=== PATIENT | female | born 1985 | race Caucasian/White ===

== ENCOUNTER 2017-08-01 17:35 | Emergency (ER) | payer SELFPAY ==
[~2017-08-01] VITALS: Ht 157.5 cm; Wt 65.5 kg
[~2017-08-01 17:35] MED LIST: HYDR-3498 PO
[2017-08-01 17:37] VITALS: Ht 157.5 cm; Wt 65.5 kg
--- NOTE | 2017-08-01 20:28 | ERD ---
ER Documentation Chief Complaint Date/Time DATE: 08/01/17 TIME: 20:26 Chief Complaint B/L EYE SWELLNG X 3 DAYS WITH DISCAHRGE HPI This a 32-year-old female who presents the emergency department today complaining of bilateral eye redness for the past 3 days and pain and itching with urination for the past 2 days. States that she has light sensitivity. Denies any discharge. States that she does have some cloudiness. Denies any fevers or chills.She does wear eyeglasses but denies wearing contacts. ROS All systems reviewed and are negative except as per history of present illness. Medications Home Meds Active Scripts Ciprofloxacin Opht* (Ciloxan*) 0.3%-3.5 Opht Oint, 1 APPLIC BOTH EYES four times daily for 7 Days, EA Prov:CONSTANTINO DUQUE PA-C 08/01/17 Acetaminophen* (Tylophen*) 500 Mg Capsule, 1 CAP PO Q6H Y for PAIN AND OR ELEVATED TEMP, #30 CAP Prov:CONSTANTINO DUQUE PA-C 08/01/17 Clotrimazole* (Clotrimazole* AF) 1% - 30 Gm Cream.gm., 1 APPLIC TOP BID for 7 Days, #1 TUB Prov:CONSTANTINO DUQUE PA-C 08/01/17 Hydrocodone Bit-Acetaminophen* ([place]*) 5-325 Mg Tab, 1 TAB PO DAILY Y for PAIN , #10 TAB 0 Refills Prov:JESUS RIZVI PA-C 01/26/16 Discontinued Scripts Ciprofloxacin Opht* (Ciloxan*) 0.3%-3.5 Opht Oint, 1 APPLIC BOTH EYES DAILY for 7 Days, EA Prov:CONSTANTINO DUQUE PA-C 08/01/17 PMhx/Soc Medical and Surgical Hx: pt denies Surgical Hx Hx Alcohol Use: No Hx Substance Use: No Hx Tobacco Use: No Smoking Status: Never smoker Physical Exam Vitals Vital Signs Date Time Temp Pulse Resp B/P Pulse Ox O2 Delivery O2 Flow Rate FiO2 08/01/17 22:16 98.0 79 18 128/80 99 Room Air 08/01/17 17:37 98.2 98 18 139/84 98 Physical Exam Const: NAD Head: Atraumatic Eyes: Bilateral conjunctival erythema. PERRLA. EOM intact. Nontender orbits. ENT: Normal External Ears, Nose and Mouth. Neck: Full range of motion..~ No meningismus. Resp: Clear to auscultation bilaterally Cardio: Regular rate and rhythm, no murmurs Abd: Soft, non tender, non distended. Normal bowel sounds Skin: No petechiae or rashes Back: No midline or flank tenderness Neur: Awake and alert Psych: Normal Mood and Affect Results 24 hrs Laboratory Tests Test 08/01/17 21:14 Bedside Urine pH (LAB) 5.5 Bedside Urine Protein (LAB) Negative Bedside Urine Glucose (UA) 0.50% Bedside Urine Ketones (LAB) 1+ Bedside Urine Blood Negative Bedside Urine Nitrite (LAB) Negative Bedside Urine Leukocyte Esterase (L Negative Current Medications Medications (Trade) Dose Ordered Sig/Peng Route PRN Reason Start Time Stop Time Status Last Admin Dose Admin Fluorescein Sodium (Gnrml-L-Mkqqp) 1 strip ONCE ONCE BOTH EYES 08/01/17 20:30 08/01/17 20:31 DC Tetracaine HCl (Tetracaine 0.5% Steri-Unit Camila) 1 drop ONCE ONCE BOTH EYES 08/01/17 20:30 08/01/17 20:31 DC Acetaminophen/ Hydrocodone Bitart ([place] (5/325)) 1 tab ONCE ONCE PO 08/01/17 20:30 08/01/17 20:31 DC 08/01/17 20:51 Procedures/MDM This a 32-year-old female who presents to the emergency department today complaining of some bilateral eye redness for the past 3 days and light sensitivity. Prior to me leaving the room she mentioned that she had burning and pain with urination for the past couple of days. Denies any fevers or chills. I did do a visual acuity and floor seen eye test as well as use of a Deejay-Pen. UA Is negative for infection. Visual acuity Left eye 20/50 right eye 20/50 bilateral 20/50 Deejay-Pen, right eye 25, 25, 25, left eye 25, 25, 25 Flouroscien eye test with Adair lamp shows no evidence of Foreign body or corneal abrasion. Patient was given [place] here in the emergency dept. She will be given a prescription for tylenol and antibiotics to treat possible conjunctivitis vs iritis, vs keratitis Low suspicion for acute narrow angle glaucoma given patient has bilateral eye redness Pressures are within normal limits. Low suspicion for ocular emergency , hyphema, globe rupture, retinal detachment.. Patient was instructed to follow-up with her eye doctor tomorrow. She was also given referral information for [facility]. Discussed the patient with Dr. Braswell and he recommended the patient be given Ciloxan. Patient was also given a prescription for Chlortrimazole for vaginal itching and likely yeast infection. There is no evidence of urinary tract infection. At this time the patient is stable for discharge and outpatient management. Patient should follow up with their PCP in the next 1-2 days. They may return to the emergency department sooner for any persistent or worsening of symptoms. Patient understood and agreed with the plan. Departure Diagnosis: Primary Impression: Eye problem Additional Impression: Vaginal itching Condition: CONSTANTINO Jernigan PA-C Aug 01, 2017 20:28
[2017-08-01] MEDS ORDERED: TETRACAINE 0.5% 4 ML OPH BOTH EYES ONE (20:30)
[2017-08-01] MEDS ORDERED: HYDROCODONE/APAP (5/325) TAB PO ONE (20:30)
[2017-08-01] MEDS ORDERED: FLUORESCEIN STRIP BOTH EYES ONE (20:30)
[2017-08-01 21:07] LABS: URINE BLOOD (Dip) POC Negative (NEGATIVE)
[2017-08-01] MEDS ORDERED: CLOT30CR24 TOP (21:44)
[2017-08-01] MEDS ORDERED: CPR3OO3.5 BOTH EYES ×2 (21:45→21:51)
[2017-08-01] MEDS ORDERED: ACET500C5 PO (21:46)
[2017-08-01 22:16] VITALS: BP 128/80; PULSE 79; RESP 18; TEMP 98
== END 2017-08-01 22:17 | disposition home or self-care (01) ==
LOC: FTE 17:35
DX: H57.8 Other specified disorders of eye and adnexa (principal); N89.8 Other specified noninflammatory disorders of vagina
CPT/HCPCS: 81003; 99283

== ENCOUNTER 2017-09-12 11:08 | Emergency (ER) | payer OTHER ==
[~2017-09-12] VITALS: Ht 157.5 cm; Wt 66.0 kg
[~2017-09-12 11:08] MED LIST changes: +ACET500C5 PO; +CLOT30CR24 TOP; +CPR3OO3.5 BOTH EYES
[2017-09-12 11:11] VITALS: Ht 157.5 cm; Wt 66.0 kg
[2017-09-12] MEDS ORDERED: IBUP-1542 PO (11:39)
--- NOTE | 2017-09-12 11:42 | ERD ---
ER Documentation Chief Complaint Date/Time DATE: 09/12/17 TIME: 11:41 Chief Complaint LT BIG TOE NAIL PAIN /DISCOLORATION , DENEIS TRAUMA HPI 32-year-old female presents with complaints regarding her feet. She noticed her left big toenail was dark discoloration over the last week. She denies any history of trauma. She has pain over the nails well. There is no redness, bleeding or discharge. She also has an additional complaint of pain on the bottom of her feet. She is concerned because she has a history of diabetes. ROS All systems reviewed and are negative except as per history of present illness. Medications Home Meds Active Scripts Ibuprofen* (Motrin*) 600 Mg Tab, 600 MG PO Q6, #20 TAB Prov:TERRELL KRAUS MD 09/12/17 Ciprofloxacin Opht* (Ciloxan*) 0.3%-3.5 Opht Oint, 1 APPLIC BOTH EYES four times daily for 7 Days, EA Prov:CONSTANTINO DUQUE PA-C 08/01/17 Acetaminophen* (Tylophen*) 500 Mg Capsule, 1 CAP PO Q6H Y for PAIN AND OR ELEVATED TEMP, #30 CAP Prov:CONSTANTINO DUQUE PA-C 08/01/17 Clotrimazole* (Clotrimazole* AF) 1% - 30 Gm Cream.gm., 1 APPLIC TOP BID for 7 Days, #1 TUB Prov:CONSTANTINO DUQUE PA-C 08/01/17 Hydrocodone Bit-Acetaminophen* ([place]*) 5-325 Mg Tab, 1 TAB PO DAILY Y for PAIN , #10 TAB 0 Refills Prov:JESUS RIZVI PA-C 01/26/16 Allergies Allergies: Coded Allergies: Penicillins (Verified Allergy, Mild, 09/12/17) PMhx/Soc Medical and Surgical Hx: pt denies Medical Hx Hx Alcohol Use: No Hx Substance Use: No Hx Tobacco Use: No Smoking Status: Never smoker Physical Exam Vitals Vital Signs Date Time Temp Pulse Resp B/P Pulse Ox O2 Delivery O2 Flow Rate FiO2 09/12/17 11:11 98.1 88 17 117/87 98 Physical Exam Const: [] Alert, Head: Atraumatic Eyes: Normal Conjunctiva ENT: Normal External Ears, Nose and Mouth. Neck: Full range of motion..~ No meningismus. Resp: Clear to auscultation bilaterally Cardio: Regular rate and rhythm, no murmurs Abd: Soft, non tender, non distended. Normal bowel sounds Skin: No petechiae or rashes Back: No midline or flank tenderness Ext: No cyanosis, or edema. There is a subungual hematoma on the left big toenail without erythema, bleeding or discharge. There is mild tenderness in the bilateral plantar fascia without erythema, warmth, deformities. Neur: Awake and alert Psych: Normal Mood and Affect Procedures/MDM Patient presents with signs and symptoms of left big toe subungual hematoma and bilateral plantar fasciitis. Cellulitis, fracture, dislocation, ischemia, ulcers. She will treated ibuprofen, reassurance and wound care and its expectations that the nail will fall off. She should return for fevers, redness , new symptoms with primary doctor. Departure Diagnosis: Primary Impression: Plantar fasciitis Additional Impression: Subungual hematoma Condition: Stable Patient Instructions: Plantar Fasciitis, Subungual Hematoma Additional Instructions: luis manuel david mas echada TEEHEE, KEVIN N. MD Sep 12, 2017 11:42
== END 2017-09-12 12:17 | disposition home or self-care (01) ==
LOC: FTE 11:08
DX: M72.2 Plantar fascial fibromatosis (principal); S90.212A Contusion of left great toe with damage to nail, initial encounter; X58.XXXA Exposure to other specified factors, initial encounter; Y92.9 Unspecified place or not applicable
CPT/HCPCS: 99283

== ENCOUNTER 2017-11-11 08:03 | Emergency (ER) | payer OTHER ==
[~2017-11-11] VITALS: Ht 157.5 cm; Wt 64.1 kg
[~2017-11-11 08:03] MED LIST changes: +IBUP-1542 PO
[2017-11-11 08:06] VITALS: Ht 157.5 cm; Wt 64.1 kg
[2017-11-11] MEDS ORDERED: MECLIZINE 12.5 MG TAB PO ONE (08:30)
[2017-11-11] MEDS ORDERED: MECL12.574 PO (08:37)
[2017-11-11] MEDS ORDERED: SOD CHLORIDE 0.9% 1,000 ML IV STA (08:40)
--- NOTE | 2017-11-11 08:57 | ERD ---
ER Documentation Chief Complaint Chief Complaint dizziness started this am hx of DM HPI 29-year-old female with a history of diabetes mellitus type 2 insulin-dependent comes in with vertiginous dizziness and that began this morning. The patient describes as room spinning and it is worse when she tries to get up from bed or when she turns her head to the left to right. She denies any visual changes, paresthesias or motor weakness. She denies any fevers chills, nausea, vomiting. ROS All systems reviewed and are negative except as per history of present illness. Medications Home Meds Active Scripts Meclizine Hcl* (Antivert*) 12.5 Mg Tab, 12.5 MG PO Q6H Y for DIZZINESS, #20 TAB Prov:JUANITO FLYNN PA-C 11/11/17 Ibuprofen* (Motrin*) 600 Mg Tab, 600 MG PO Q6, #20 TAB Prov:TERRELL KRAUS MD 09/12/17 Ciprofloxacin Opht* (Ciloxan*) 0.3%-3.5 Opht Oint, 1 APPLIC BOTH EYES four times daily for 7 Days, EA Prov:CONSTANTINO DUQUE PA-C 08/01/17 Acetaminophen* (Tylophen*) 500 Mg Capsule, 1 CAP PO Q6H Y for PAIN AND OR ELEVATED TEMP, #30 CAP Prov:CONSTANTINO DUQUE PA-C 08/01/17 Clotrimazole* (Clotrimazole* AF) 1% - 30 Gm Cream.gm., 1 APPLIC TOP BID for 7 Days, #1 TUB Prov:CONSTANTINO DUQUE PA-C 08/01/17 Hydrocodone Bit-Acetaminophen* ([place]*) 5-325 Mg Tab, 1 TAB PO DAILY Y for PAIN , #10 TAB 0 Refills Prov:JESUS RIZVI PA-C 01/26/16 Allergies Allergies: Coded Allergies: Penicillins (Verified Allergy, Mild, 09/12/17) PMhx/Soc Hx Alcohol Use: No Hx Substance Use: No Hx Tobacco Use: No Smoking Status: Never smoker Physical Exam Vitals Vital Signs Date Time Temp Pulse Resp B/P Pulse Ox O2 Delivery O2 Flow Rate FiO2 11/11/17 08:06 89.0 89 18 117/86 99 Physical Exam General: Well-developed, well-nourished. The patient appears in no acute distress. HEENT: Head is normocephalic, atraumatic. No scleral icterus. Neck: Supple. Nontender. Lungs: Clear to auscultation. Normal air movement. Heart: Regular rate and rhythm. S1 and S2 are normal. No murmurs, gallops, or rubs. Abdomen: Soft, nontender, nondistended. Bowel sounds are normoactive. Extremities: No clubbing or cyanosis. Normal pulses. Moving extremities x 4. No weakness. Neuro: M/S: Alert and oriented Face: EOMI, CN II-XII grossly intact Motor: Normal strength throughout Sensation: Normal sensation throughout Speech: Normal Cerebel: Normal coordination Normal gait Normal finger to nose DTR: 2+ and symmetric upper/lower extremities Skin: Normal turgor. No rash or lesions. Result Diagram: 11/11/17 0851 11/11/17 0851 Results 24 hrs Laboratory Tests Test 11/11/17 08:37 11/11/17 08:51 11/11/17 09:46 Bedside Glucose 311mg/dL 262mg/dL White Blood Count 5.510^3/ul Red Blood Count 5.6510^6/ul Hemoglobin 15.2g/dl Hematocrit 45.9% Mean Corpuscular Volume 81.2fl Mean Corpuscular Hemoglobin 26.9pg Mean Corpuscular Hemoglobin Concent 33.1g/dl Red Cell Distribution Width 12.5% Platelet Count 43185^3/UL Mean Platelet Volume 11.3fl Neutrophils % 51.9% Lymphocytes % 39.5% Monocytes % 6.9% Eosinophils % 1.1% Basophils % 0.4% Nucleated Red Blood Cells % 0.0/100WBC Neutrophils # 2.910^3/ul Lymphocytes # 2.210^3/ul Monocytes # 0.410^3/ul Eosinophils # 0.110^3/ul Basophils # 0.010^3/ul Nucleated Red Blood Cells # 0.010^3/ul Urine Color YELLOW Urine Clarity CLEAR Urine pH 6.0 Urine Specific [place] 1.039 Urine Ketones NEGATIVEmg/dL Urine Nitrite NEGATIVEmg/dL Urine Bilirubin NEGATIVEmg/dL Urine Urobilinogen NEGATIVEmg/dL Urine Leukocyte Esterase NEGATIVELeu/ul Urine Hemoglobin NEGATIVEmg/dL Urine Glucose 3+mg/dL Urine Total Protein NEGATIVEmg/dl Sodium Level 139mmol/L Potassium Level 3.8mmol/L Chloride Level 100mmol/L Carbon Dioxide Level 28mmol/L Anion Gap 15 Blood Urea Nitrogen 11mg/dl Creatinine 0.40mg/dl Glucose Level 356mg/dl Calcium Level 9.5mg/dl Serum HCG, Qualitative NEGATIVE Current Medications Medications (Trade) Dose Ordered Sig/Peng Route PRN Reason Start Time Stop Time Status Last Admin Dose Admin Meclizine HCl 25 mg 25 mg ONCE ONCE PO 11/11/17 08:30 11/11/17 08:32 DC 11/11/17 08:47 Sodium Chloride (NS) 1,000 ml @ 1,000 mls/hr Q1H STAT IV 11/11/17 08:40 11/11/17 09:39 DC 11/11/17 08:48 Procedures/MDM ED COURSE: The patient was given meclizine p.o. Her Accu-Chek was 311, for labs, fluids initiated intravenously. Recheck your patient sugar was in the 260s. MEDICAL DECISION MAKIN-year-old man with history diabetes comes in with vertiginous dizziness, the patient's history and physical examination is most consistent with positional vertigo. Patient presents with a normal neurologic examination, and a clear history of vertigo related to change of position. Suspicion for TIA, stroke, intracranial hemorrhage, dehydration, is low. Her symptoms also certainly do not appear to be related to any cardiopulmonary process. She did have elevated blood sugar, she states that she forgot to take her insulin this morning, the patient is not in DKA. Symptoms of dizziness do not appear to be related to her blood sugar. She was given fluids intravenously that which reduce her blood sugar, and she will be discharged home. Departure Diagnosis: Primary Impression: Dizziness Additional Impression: Diabetes Condition: Good Patient Instructions: Dizziness (Vertigo) and Balance Problems: Ensuring Your Safety JUANITO FLYNN PA-C Nov 11, 2017 08:57
[2017-11-11 09:17] LABS: BASOPHILS % 0.4 % (0.0-2.0); EOSINOPHILS # 0.1 10^3/ul (0.0-0.5); EOSINOPHILS % 1.1 % (0.0-7.0); HEMATOCRIT 45.9 % (37.0-47.0); HEMOGLOBIN 15.2 g/dl (12.0-16.0); LYMPHOCYTES # 2.2 10^3/ul (0.8-2.9); LYMPHOCYTES % 39.5 % (15.0-51.0); MEAN CORPUSCULAR HEMOGLOBIN 26.9 pg (29.0-33.0); MEAN CORPUSCULAR HGB CONC 33.1 g/dl (32.0-37.0); MEAN CORPUSCULAR VOLUME 81.2 fl (82.0-101.0); MEAN PLATELET VOLUME 11.3 fl (7.4-10.4); MONOCYTE # 0.4 10^3/ul (0.3-0.9); MONOCYTES % 6.9 % (0.0-11.0); NEUTROPHIL # 2.9 10^3/ul (1.6-7.5); NEUTROPHILS % 51.9 % (39.0-77.0); PLATELET COUNT 190 10^3/UL (140-415); RED BLOOD COUNT 5.65 10^6/ul (4.20-5.40); RED CELL DISTRIBUTION WIDTH 12.5 % (11.5-14.5); WHITE BLOOD COUNT 5.5 10^3/ul (4.8-10.8)
[2017-11-11 09:21] LABS: ADD UMIC NO; UR ASCORBIC ACID NEGATIVE (NEGATIVE); UR BILIRUBIN (Dip) NEGATIVE (NEGATIVE); UR BLOOD (Dip) NEGATIVE (NEGATIVE); UR CLARITY CLEAR (CLEAR); UR COLOR YELLOW (YELLOW); UR GLUCOSE (Dip) 3+ mg/dL (NEGATIVE); UR KETONES (Dip) NEGATIVE (NEGATIVE); UR LEUKOCYTE ESTERASE (Dip) NEGATIVE Leu/ul (NEGATIVE); UR NITRITE (Dip) NEGATIVE (NEGATIVE); UR SPECIFIC GRAVITY (Dip) 1.039 (1.003-1.030); UR TOTAL PROTEIN (Dip) NEGATIVE (NEGATIVE); UR UROBILINOGEN (Dip) NEGATIVE (NEGATIVE)
[2017-11-11 09:39] LABS: CALCIUM 9.5 mg/dl (8.4-10.2); CREATININE 0.4 mg/dl (0.44-1.00); POTASSIUM 3.8 mmol/L (3.5-5.1)
== END 2017-11-11 10:58 | disposition home or self-care (01) ==
LOC: FTE 08:03
DX: E11.9 Type 2 diabetes mellitus without complications (principal)
CPT/HCPCS: 36415; 80048; 81003; 82962; 84703; 85025; J7030; Z7502; Z7610

== ENCOUNTER 2017-12-11 08:43 | Emergency (ER) | END 2017-12-11 11:58 | disposition home or self-care (01) ==

== ENCOUNTER 2018-02-07 15:43 | Emergency (ER) | END 2018-02-07 18:11 | disposition home or self-care (01) ==

== ENCOUNTER 2018-04-01 07:55 | Emergency (ER) | END 2018-04-01 10:28 | disposition home or self-care (01) ==

== ENCOUNTER 2018-08-18 14:46 | Emergency (ER) | END 2018-08-18 19:42 | disposition home or self-care (01) ==

== ENCOUNTER 2018-08-25 08:50 | Emergency (ER) | END 2018-08-25 11:21 | disposition home or self-care (01) ==

== ENCOUNTER 2018-09-11 07:47 | Emergency (ER) | END 2018-09-11 08:24 | disposition home or self-care (01) ==